=== PATIENT | female | born 1995 | race Asian ===

== ENCOUNTER 2023-09-13 23:15 | Emergency (ER) | payer MEDICAID ==
[~2023-09-13] VITALS: Ht 167.6 cm; Wt 39.9 kg
[2023-09-13 23:15] VITALS: BP 114/80; PULSE 95; RESP 17; TEMP 98; O2SAT 99
[2023-09-14 01:31] VITALS: BP 112/80; PULSE 94; RESP 18; TEMP 98
[2023-09-14 02:45] VITALS: O2SAT 97
[2023-09-14] MEDS: KETOROLAC 30 MG/ML VIAL IM ONE (03:52)
[2023-09-14] MEDS: diazePAM 5 MG TAB PO ONE (03:52)
[2023-09-14 03:58] VITALS: O2SAT 99
[2023-09-14] MEDS ORDERED: CYCL-654 PO (06:26)
[2023-09-14] MEDS ORDERED: NAPR-1704 PO (06:26)
== END 2023-09-14 06:38 | disposition home or self-care (01) ==
LOC: MED 23:15
DX: S16.1XXA Strain of muscle, fascia and tendon at neck level, initial encounter (principal); M54.50 Low back pain, unspecified; R51.9 Headache, unspecified; Z79.899 Other long term (current) drug therapy; V49.88XA Car occupant (driver) (passenger) injured in other specified transport accidents, initial encounter; Y93.89 Activity, other specified; Y92.89 Other specified places as the place of occurrence of the external cause; Y99.8 Other external cause status
CPT/HCPCS: 70450; 71045; 72100; 72125; 81025; 96372; 99285; J1885; Q0092